=== PATIENT | female | born 1950 | race Caucasian/White ===

== ENCOUNTER → 2017-12-22 | Outpatient (CLI) | payer MEDICARE | END | disposition home or self-care (01) | LOC: CFH 06:47 | PROVIDERS: ATTEND Orthopaedic Surgery Adult Reconstructive Orthopaedic Surgery | DX: S82.142G Displaced bicondylar fracture of left tibia, subsequent encounter for closed fracture with delayed healing (principal); M22.42 Chondromalacia patellae, left knee; R60.9 Edema, unspecified; M25.462 Effusion, left knee; X58.XXXD Exposure to other specified factors, subsequent encounter ==